=== PATIENT | male | born 1995 | race African-American/Black ===

== ENCOUNTER 2016-11-24 12:55 | Emergency (ER) | payer BC ==
[~2016-11-24 12:55] MED LIST: BAYER BACK PO; NO MEDICATIONS; [UNRECOGNIZED DRUG - OTHER] PO
[2016-11-24] MEDS ORDERED: BP PILL (12:58)
[2016-11-24 13:43] LABS: URINE BILIRUBIN NEG (NEG); URINE BLOOD TRACE-INTACT (NEG); URINE COLOR YELLOW; URINE GLUCOSE NEG (NORM); URINE KETONE NEG (NEG); URINE LEUKOCYTE ESTERASE 2+ (NEG); URINE NITRATE NEG (NEG); URINE PH 6.5 (5-8); URINE PROTEIN NEG (NEG); URINE UROBILINOGEN 0.2 MG/DL (NORM)
[2016-11-24 13:48] LABS: MICRO INDICATED? YES; URINE APPEARANCE SL HAZY; URINE SOURCE CLEAN CATCH
[2016-11-24 13:54] LABS: CULTURE INDICATED? YES; URINE BACTERIA NEG (NEG)
[2016-11-27 08:57] LABS: CHLAMYDIA TRACH Not Detected (Not Detected); N GONOR Detected (Not Detected)
== END 2016-11-24 14:13 | disposition home or self-care (01) ==
LOC: SED 12:55
PROVIDERS: Emergency Medicine
DX: N34.2 Other urethritis (principal); F17.210 Nicotine dependence, cigarettes, uncomplicated
CPT/HCPCS: 81003; 87086; 87491; 87591; 96372; 99283; J0696